=== PATIENT | female | born 1990 | race Caucasian/White ===

== ENCOUNTER 2021-06-11 14:47 | Outpatient (CLI) | payer OTHER ==
[2021-06-11] MEDS ORDERED: PRENATAL CAPLE1 EAC1 (15:06)
[2021-06-11] MEDS ORDERED: TYLOPHEN500 MG (15:07)
== END 2021-06-11 19:30 | disposition home or self-care (01) ==
LOC: OBS/DEL 14:47
PROVIDERS: ATTEND Obstetrics & Gynecology
DX: O98.512 Other viral diseases complicating pregnancy, second trimester (principal); U07.1 COVID-19; Z3A.20 20 weeks gestation of pregnancy

== ENCOUNTER 2021-10-14 08:00 | Inpatient (IN) | payer OTHER ==
[~2021-10-14] VITALS: Ht 152.4 cm; Wt 68.9 kg
[~2021-10-14 08:00] MED LIST: PRENATAL CAPLE1 EAC1; TYLOPHEN500 MG
[2021-10-22] MEDS ORDERED: PRENATAL + DHA1 EAC1 PO (08:22)
== END 2021-10-22 10:56 | disposition home or self-care (01) | DRG 788 ==
LOC: SURG-SUITE 10-19 06:00 → O/R 10-19 06:00 → OB/GYN 10-19 07:00 → EDBD 10-19 08:00 → OB/GYN 10-19 09:00 → SURG-SUITE 10-19 11:22
PROVIDERS: ADMIT Obstetrics & Gynecology; ATTEND Obstetrics & Gynecology
PROC: 4A1HXCZ Monitoring of Products of Conception, Cardiac Rate, External Approach (ICD-10-PCS; 2021-10-19)
PROC: 10D00Z1 Extraction of Products of Conception, Low, Open Approach (ICD-10-PCS; principal; 2021-10-19 07:00)
DX: O34.211 Maternal care for low transverse scar from previous cesarean delivery (principal); O99.820 Streptococcus B carrier state complicating pregnancy; Z3A.39 39 weeks gestation of pregnancy; Z37.0 Single live birth; Z20.822 Contact with and (suspected) exposure to COVID-19